=== PATIENT | female | born 1950 | race Caucasian/White ===

== ENCOUNTER → 2023-06-10 08:07 | Outpatient (REF) | payer MEDICARE, OTHER, SELFPAY | LOC: WDC 08:07 | PROVIDERS: ATTENDING PHYSICIAN Internal Medicine | DX: R92.8 Other abnormal and inconclusive findings on diagnostic imaging of breast (principal) | CPT/HCPCS: 76642 ==

== ENCOUNTER → 2023-06-15 13:18 | Outpatient (REF) | payer MEDICARE, OTHER, SELFPAY | LOC: RAD 13:18 | PROVIDERS: ATTENDING PHYSICIAN Nurse Practitioner Family | DX: R10.9 Unspecified abdominal pain (principal) | CPT/HCPCS: 74019 ==

== ENCOUNTER 2023-07-31 06:19 | Day surgery (SDC) | payer MEDICARE, OTHER, SELFPAY ==
[2023-07-31 09:18] VITALS: BP 156/86
[2023-07-31 10:57] VITALS: BP 119/68
[2023-07-31 11:00] VITALS: BP 116/65
[2023-07-31 11:15] VITALS: BP 116/59
[2023-07-31 11:30] VITALS: BP 125/64
[2023-07-31 11:45] VITALS: BP 125/61
== END 2023-07-31 12:05 | disposition home or self-care (01) ==
LOC: GI 06:19
PROVIDERS: ATTENDING PHYSICIAN Internal Medicine Gastroenterology
DX: Z80.0 Family history of malignant neoplasm of digestive organs (principal); K57.30 Diverticulosis of large intestine without perforation or abscess without bleeding; Z12.11 Encounter for screening for malignant neoplasm of colon
CPT/HCPCS: 45380; 88305

== ENCOUNTER → 2023-12-01 11:19 | Outpatient (REF) | payer MEDICARE, OTHER, SELFPAY | LOC: WDC 11:19 | PROVIDERS: ATTENDING PHYSICIAN Internal Medicine | DX: Z12.31 Encounter for screening mammogram for malignant neoplasm of breast (principal) | CPT/HCPCS: 77063; 77067 ==

== ENCOUNTER → 2023-12-07 08:55 | Outpatient (REF) | payer MEDICARE, OTHER, SELFPAY | LOC: WDC 08:55 | PROVIDERS: ATTENDING PHYSICIAN Internal Medicine | DX: R92.8 Other abnormal and inconclusive findings on diagnostic imaging of breast (principal) | CPT/HCPCS: 76642 ==

== ENCOUNTER → 2024-01-27 10:27 | Outpatient (REF) | payer MEDICARE, OTHER, SELFPAY | LOC: RCS 10:27 | PROVIDERS: ATTENDING PHYSICIAN Internal Medicine; REFERRING PHYSICIAN Internal Medicine | DX: I10 Essential (primary) hypertension (principal) | CPT/HCPCS: 93306 ==

== ENCOUNTER → 2024-06-17 11:44 | Emergency (ER) | payer MEDICARE, OTHER, SELFPAY ==
[2024-06-17 11:45] VITALS: BP 169/96
[2024-06-17 12:14] LABS: % Basophils 0.8 % (0-2); % Eosinophils 2.6 % (0-6); % Immature Granulocytes 0.7 % (0-0.5); % Lymphocytes 26.3 % (20.5-51.1); % Neutrophils 60.6 % (42.2-75.2); Absolute Basophils 0.1 10^3/uL (0-0.2); Absolute Eosinophils 0.2 10^3/uL (0-0.7); Absolute Immature Granulocytes 0.1 10^3/uL (0-0.05); Absolute Lymphocytes 1.9 10^3/uL (1.2-3.4); Absolute Monocytes 0.7 10^3/uL (0.1-0.6); Absolute Neutrophils 4.4 10^3/uL (1.4-6.5); Hematocrit 35.9 % (37.0-47.0); Hemoglobin 11.9 g/dL (12.0-16.0); Mean Corp Hgb Conc. 33.1 g/dL (33.0-37.0); Mean Corpuscular Hgb 31.9 pg (27.0-31.0); Mean Corpuscular Volume 96.2 fL (81.0-99.0); Mean Platelet Volume 10.8 fL (7.4-10.4); Nucleated Red Blood Cells % 0 %; Platelet Count 210 10^3/uL (130-400); Red Blood Cell Count 3.73 10^6/uL (4.20-5.40); Red Cell Dist. Width 14.6 % (11.5-14.5); White Blood Cell Count 7.3 10^3/uL (4.8-10.8)
[2024-06-17 12:23] LABS: ALT (SGPT) 32 U/L (0-35); AST (SGOT) 35 U/L (14-36); Albumin 4.5 g/dl (3.5-5.0); Alkaline Phosphatase 43 U/L (38-126); Blood Urea Nitrogen 28 mg/dl (7-17); Calcium 9.8 mg/dl (8.4-10.2); Carbon Dioxide 24 mmol/L (22-30); Chloride 107 mmol/L (98-107); Glucose 109 mg/dl (70-99); Potassium 4.5 mmol/L (3.5-5.1); Sodium 142 mmol/L (135-145); Total Bilirubin 0.7 mg/dl (0.2-1.3); Total Protein 7.8 g/dl (6.3-8.2); eGFR 59.12
[2024-06-17 12:34] LABS: Troponin I < 0.012 ng/ml
[2024-06-17 13:13] VITALS: BP 170/87
[2024-06-17 13:25] VITALS: BMI 48.1
--- NOTE | 2024-06-17 13:25 | ED.GENMED ---
History of Present Illness
General
Chief Complaint: Chest Pain
Source: patient
Exam Limitations: none
Time Seen by Provider: 06/17/24 13:06
Nursing documentation reviewed up to this point in time: agreed with
History of Present Illness
History of Present Illness:
73 y/o F, h/o HTN, HLD, obesity, strong fhx of cad
had essentially neg stress test 2021
moderate on echo 01/2024
says around noon yesterday she suddenly got fatigued, chest pain that was severe pressure, radiated to her jaw, lasting 15-20 minutes or so; she was at rest when it started; she was really wiped out after and went to sleep, napped for hours, woke up
feeling still a heaviness in her chest, some nausea
tried tums and tylenol; sympmtoms did improve
she slept overnight but felt chest tightness this morning, which got worse when she went to the gym and tried to do some abdominal crunches and so she stopped exercising
currently her symptoms are very minimal chest tightness; not pleuritic
she has been having increased MCLEAN for weeks and saw bethel for her check up a few weeks ago; they discussed this and said to see him back in 6 mo rather than a year; her echo wasn't repeated
Past History
Past History
ED Past Medical History: CAD and Hypercholesterolemia
ED Past Surgical History: Appendectomy and Cholecystectomy
Social History
Tobacco: Non-smoker
Personal:
Living: with family
Phy Exam
Physical Exam
Physical Exam:
GENERAL: Alert , in no apparent distress, looks well
EYE: pupils equal and reactive
NECK: Supple
ENT: o/p clr, mmm.
CARDIAC: Regular rate and rhythm . + moderate murmur
LUNGS: Clear breath sounds bilaterally, no acute respiratory distress, no wheezes/rales/rhonchi
ABDOMEN: Soft, without focal tenderness, no r/g, no cvat, normal bowel sounds
NEUROLOGICAL: Alert and oriented, no focal neuro deficits
SKIN: Warm and dry, skin intact.
MUSCULOSKELETAL: No edema, well perfused. neg bijal's sign
PSYCH: Normal and appropriate interaction.
Scores
Heart Score for Chest Pain Patients
STEMI patient?: No
History: Moderately Suspicious
ECG: Nonspecific Repolarization
Age: >/= 65 years
Risk Factors: >/= 3 Risk Factors or History of CAD
Troponin: </= Normal Limit
Heart Score for Chest Pain Patients: 6
Heart Score Risk: 20.3% MACE over next 6 weeks
Course
Orders/Labs/Results
Orders:
Orders
06/17/24 11:49
Electrocardiogram (*1) Urgent
Reason for Study: Chest Pain
EKG- Treatment ONCE
06/17/24 11:57
Complete Blood Count/With Diff Urgent
Comprehensive Metabolic Panel Urgent
Troponin I Urgent
06/17/24 13:32
CR Chest - 2 Views Urgent
Comment:
Reason For Exam: chest pain, sob
06/17/24 13:43
COVID-19 Antigen Urgent
Source: Nasal Swab
NT-proBNP Urgent
06/17/24 13:51
Echo 2D MMode Color/Doppler Urgent
Reason for Study: aortic stenosis, sob, chest pain
06/17/24 15:30
Troponin I Urgent
Abnormal Lab Results
06/17/24
11:57
RBC 3.73 L 10^6/uL
(4.20-5.40)
Hgb 11.9 L g/dL
(12.0-16.0)
Hct 35.9 L %
(37.0-47.0)
MCH 31.9 H pg
(27.0-31.0)
RDW 14.6 H %
(11.5-14.5)
MPV 10.8 H fL
(7.4-10.4)
Abs Immat Gran (auto) 0.1 H 10^3/uL
(0-0.05)
Absolute Monos (auto) 0.7 H 10^3/uL
(0.1-0.6)
Immature Gran % 0.7 H %
(0-0.5)
BUN 28 H mg/dl
(7-17)
Glucose 109 H mg/dl
(70-99)
06/17/24 11:57
06/17/24 11:57
Vital Signs
Initial and Last Documented VS:
Initial Vital Signs
Temp Pulse Resp BP Pulse Ox
36.7 C 87 18 169/96 97
06/17/24 11:45 06/17/24 11:45 06/17/24 11:45 06/17/24 11:45 06/17/24 11:45
Last Documented Vital Signs
Temp Pulse Resp BP Pulse Ox
36.7 C 69 21 151/70 95
06/17/24 11:45 06/17/24 16:30 06/17/24 16:30 06/17/24 16:00 06/17/24 16:30
MDM/Problems Addressed
Differential Diagnosis Includes:
aortic stenosis, ACS, chf
MDM/Problems Addressed:
73 y/o F, h/o HTN, HLD, obesity, strong fhx of cad
had essentially neg stress test 2021
moderate on echo 01/2024
says around noon yesterday she suddenly got fatigued, chest pain that was severe pressure, radiated to her jaw, lasting 15-20 minutes or so; she was at rest when it started; she was really wiped out after and went to sleep, napped for hours, woke up
feeling still a heaviness in her chest, some nausea
tried tums and tylenol; sympmtoms did improve
she slept overnight but felt chest tightness this morning, which got worse when she went to the gym and tried to do some abdominal crunches
currently her symptoms are very minimal chest tightness; not pleuritic
she has been having increased MCLEAN for weeks and saw bethel for her check up a few weeks ago; they discussed this and said to see him back in 6 mo rather than a year; her echo wasn't repeated
d/w dr. andrews
recommended echo, 2nd trop and if stable, the chest pain has been prolonged, making it less likely that it is ACS, given 2 neg trop
ok to d/c
echo was stable
again d/w dr. andrews and ed attending
ok to d/c home
*Critical Care Note
Total Time (30-74mins, 75-104mins- exclusive of procedures): Not Applicable
ED Attending Note
-
Portions of this chart may have been created with voice recognition software.� Occasional wrong word or��sound alike� substitutions may have occurred due to the inherent limitations of voice recognition software.
Discharge Plan
Departure
Patient Disposition: Home (Routine Discharge)
Date of Disposition: 06/17/24
Time of Disposition: 16:42
Patient with high blood pressure during this ER visit?: Yes
Condition: Fair
Covid-19: Not Applicable
Discharge Problem:
Chest pain
Instructions: Chest Pain CBC Follow Up
Prescriptions:
No Action
aspirin [Adult Low Dose Aspirin] 81 MG tablet,delayed release (DR/EC)
81 mg PO DAILY
valsartan-hydrochlorothiazide 160-25 mg Tablet
1 tab PO DAILY
famotidine [Pepcid] 20 mg Tablet
20 mg PO DAILY
rosuvastatin 20 mg Tablet
20 mg PO DAILY
Referrals:
Mary Mukherjee MD [Family Provider] - Follow up in 2-3 days
Activity Restrictions/Additional Instructions:
WE ARE NOT SURE THE CAUSE OF YOUR CHES TPAIN BUT YOUR TESTS ARE REASSURING NO CARDIAC EMERGENCIES
PLEASE FOLLOW UP WITH [facility]; YOU SHOULD GET A PHONE CALL IN THE NEXT FEW DAYS
RETURN FOR WORSENING SYMPTOMS, SHORTNESS OF BREATH WITH WALKING, OR ANY CONCERNS.
Interventions
Interventions:
*Risk Screen - Suicide Last Done: 06/17/24 11:45
*General Assessment Last Done: 06/17/24 11:45
*Neglect/Abuse Screening Last Done: 06/17/24 11:45
*ED- Fall Risk Assessment Last Done: 06/17/24 14:14
*ED COVID-19 Vaccine History Last Done: 06/17/24 11:45
ED- Cardiac Assessment Last Done: 06/17/24 13:34
Discharge Date and Time
Print Language: MARTINIQUAIS
[2024-06-17 14:00] VITALS: BP 144/60
[2024-06-17 14:26] LABS: COVID-19 Antigen Negative (Negative)
[2024-06-17 15:26] VITALS: BP 153/70
[2024-06-17 15:37] LABS: NT-proBNP 48.3 pg/ml
[2024-06-17 16:00] VITALS: BP 151/70
[2024-06-17 16:08] LABS: Troponin I < 0.012 ng/ml
== END | disposition home or self-care (01) ==
LOC: EMR 11:44
PROVIDERS: Emergency Medicine; Physician Assistant; EMERGENCY PHYSICIAN Student in an Organized Health Care Education/Training Program; FAMILY PHYSICIAN Internal Medicine
DX: R07.89 Other chest pain (principal); I10 Essential (primary) hypertension; E78.00 Pure hypercholesterolemia, unspecified; E66.9 Obesity, unspecified; I25.10 Atherosclerotic heart disease of native coronary artery without angina pectoris; Z82.49 Family history of ischemic heart disease and other diseases of the circulatory system; Z90.49 Acquired absence of other specified parts of digestive tract
CPT/HCPCS: 99283; 71046; 80053; 83880; 84484; 85025; 87811; 93005; 93306

== ENCOUNTER → 2025-01-16 10:46 | Outpatient (REF) | payer MEDICARE, OTHER, SELFPAY | LOC: WDC 10:46 | PROVIDERS: ATTENDING PHYSICIAN Internal Medicine | DX: Z12.31 Encounter for screening mammogram for malignant neoplasm of breast (principal) | CPT/HCPCS: 77063; 77067 ==